=== PATIENT | female | born 1990 | race African-American/Black ===

== ENCOUNTER 2018-05-12 11:02 | Emergency (ER) | payer OTHER ==
[~2018-05-12] VITALS: Ht 152.4 cm; Wt 90.7 kg
[~2018-05-12 11:02] MED LIST: CIPRO500 MG PO; NOHOMEMEDICATIONS; ZOFRAN ODT4 MG DISSOLVE
[2018-05-12] MEDS ORDERED: NORFLEX100 MG PO (11:30)
[2018-05-12] MEDS ORDERED: NAPROSYN500 MG PO (11:30)
[2018-05-12 11:40] VITALS: BP 129/80
== END 2018-05-12 12:07 | disposition home or self-care (01) ==
LOC: ER 11:02
DX: G44.209 Tension-type headache, unspecified, not intractable (principal); F17.210 Nicotine dependence, cigarettes, uncomplicated

== ENCOUNTER 2018-05-14 19:16 | Emergency (ER) | payer OTHER ==
[~2018-05-14] VITALS: Ht 167.6 cm; Wt 90.7 kg
[~2018-05-14 19:16] MED LIST changes: +NAPROSYN500 MG PO; +NORFLEX100 MG PO
[2018-05-14 20:23] LABS: URINE BLOOD 2+ (Negative); URINE CLARITY TURBID; URINE COLOR YELLOW; URINE GLUCOSE-RANDOM* NEGATIVE (Negative); URINE KETONES TRACE (Negative); URINE LEUKOCYTES-REFLEX NEGATIVE (Negative); URINE NITRITE-REFLEX NEGATIVE (Negative); URINE PROTEIN (DIPSTICK) TRACE (Negative); URINE SPECIFIC GRAVITY >= 1.030 (1.005-1.035)
[2018-05-14 20:25] LABS: ICTOTEST (BILI CONFIRMATORY) Negative (Negative); URINE BILIRUBIN NEGATIVE (Negative)
[2018-05-14 20:30] LABS: AMP/METHAMP Negative (Negative); BARBITURATES Negative (Negative); BENZODIAZEPINES Negative (Negative); COCAINE Negative (Negative); METHADONE Negative (Negative); OPIATES Negative (Negative); PCP Negative (Negative)
[2018-05-14 20:33] LABS: AMORPHOUS URATES Many /LPF (None Seen); BACTERIA-REFLEX None Seen /HPF (None Seen); CASTS None Seen /LPF (None Seen); SQUAMOUS None Seen /LPF (0-3); URINE RBC 3-10 Few /HPF (0-2); URINE WBC-REFLEX 0-5 Rare /HPF (0-5)
[2018-05-14 20:44] LABS: ABSOLUTE NEUTROPHILS 1.7 thou/uL (1.4-8.2); BASOPHILS 1.6 % (0.0-2.0); EOSINOPHILS 0.2 % (0.0-3.0); HEMATOCRIT 35.3 % (37.0-47.0); HEMOGLOBIN 12.5 gm/dL (12.0-15.0); MCH 27.5 pg (26.0-34.0); MCHC 35.3 g/dL (28.0-37.0); MCV 77.9 fL (80.0-100.0); MONOCYTES 10.5 % (1.0-8.0); PLATELET COUNT 194 thou/uL (150-400); POLYS 42.7 % (36.0-66.0); RBC 4.53 mil/uL (4.20-5.00); RDW 14.3 % (10.5-14.5)
[2018-05-14 20:52] LABS: CALCIUM 8.7 mg/dL (8.5-10.1); POTASSIUM 3.4 mmol/L (3.5-5.1)
[2018-05-14 20:58] LABS: ALBUMIN 3.5 g/dL (3.4-5.0); TOTAL BILIRUBIN 0.5 mg/dL (<0.1-1.0); TOTAL PROTEIN 8.3 g/dL (6.4-8.2)
[2018-05-14] MEDS ORDERED: IBUPROFEN 600600 M1 PO (22:20)
[2018-05-14 22:54] VITALS: BP 133/87
== END 2018-05-14 22:56 | disposition home or self-care (01) ==
LOC: ER 19:16
PROVIDERS: Nurse Practitioner Family
DX: B34.9 Viral infection, unspecified (principal); R20.2 Paresthesia of skin; R51 Headache; F17.210 Nicotine dependence, cigarettes, uncomplicated; Z98.890 Other specified postprocedural states

== ENCOUNTER 2019-03-04 20:05 | Emergency (ER) | payer OTHER ==
[~2019-03-04] VITALS: Ht 154.9 cm; Wt 95.3 kg
[~2019-03-04 20:05] MED LIST changes: +IBUPROFEN 600600 M1 PO
[2019-03-04] MEDS ORDERED: MIRENA1 EACH IMPLANT (20:12)
[2019-03-04 21:22] LABS: HEMATOCRIT 38.4 % (37.0-47.0); HEMOGLOBIN 12.9 gm/dL (12.0-15.0); MCH 28.4 pg (26.0-34.0); MCHC 33.6 g/dL (28.0-37.0); MCV 84.7 fL (80.0-100.0); PLATELET COUNT 173 thou/uL (150-400); RBC 4.54 mil/uL (4.20-5.00); RDW 14.2 % (10.5-14.5); WBC 5.9 thou/uL (4.0-11.0)
[2019-03-04 21:29] LABS: CALCIUM 9.4 mg/dL (8.5-10.1); CREATININE 0.8 mg/dL (0.6-1.0); POTASSIUM 3.8 mmol/L (3.5-5.1)
[2019-03-04 21:35] LABS: ALBUMIN 3.6 g/dL (3.4-5.0); TOTAL BILIRUBIN 0.3 mg/dL (<0.1-1.0); TOTAL PROTEIN 7.6 g/dL (6.4-8.2)
[2019-03-04 22:46] LABS: ABSOLUTE NEUTROPHILS 2.5 thou/uL (1.4-8.2)
[2019-03-04 22:47] LABS: PLATELET ESTIMATE NORMAL
[2019-03-04] MEDS ORDERED: DOXYCYCLINE 10100 MG PO (23:19)
[2019-03-05 00:02] VITALS: BP 132/86
== END 2019-03-05 00:17 | disposition home or self-care (01) ==
LOC: ER 20:05
PROVIDERS: Nurse Practitioner
DX: L02.612 Cutaneous abscess of left foot (principal); F17.210 Nicotine dependence, cigarettes, uncomplicated; Z98.890 Other specified postprocedural states